=== PATIENT | male | born 1950 | race Caucasian/White ===

== ENCOUNTER 2019-12-11 09:21 | Day surgery (SDC) | payer OTHER ==
[~2019-12-11] VITALS: Ht 172.7 cm; Wt 78.8 kg
[~2019-12-11 09:21] MED LIST: MULTIVITAMINS1 EAC3 PO; Milk Thistle500 MG PO; TAMS.4ER PO
--- NOTE | 2019-12-11 12:04 | NUR ---
12/11/19 1204 Reena Caballero LATE ENTRY: REPORT WAS GIVEN TO ME BY [facility].RXS SHE STATES THAT DR BENOIT ORDERED AN EKG THE PT HAD PVC'S DURING THE PROCEDURE. EKG WAS DONE BY [facility] AND READ BY DR BENOIT. NO FURTHER ORDERS GIVEN AND PT WAS DISCHARGED.
== END 2019-12-11 12:04 | disposition home or self-care (01) ==
LOC: ORSCSDS 09:21
PROVIDERS: Internal Medicine Gastroenterology
PROC: 0DBN8ZX Excision of Sigmoid Colon, Via Natural or Artificial Opening Endoscopic, Diagnostic (ICD-10-PCS; principal; 2019-12-11 10:30)
PROC: 0DBL8ZX Excision of Transverse Colon, Via Natural or Artificial Opening Endoscopic, Diagnostic (ICD-10-PCS; principal; 2019-12-11 10:30)
PROC: 0D5H8ZZ Destruction of Cecum, Via Natural or Artificial Opening Endoscopic (ICD-10-PCS; principal; 2019-12-11 10:30)
PROC: 0DBK8ZX Excision of Ascending Colon, Via Natural or Artificial Opening Endoscopic, Diagnostic (ICD-10-PCS; principal; 2019-12-11 10:30)
PROC: 0DBP8ZX Excision of Rectum, Via Natural or Artificial Opening Endoscopic, Diagnostic (ICD-10-PCS; principal; 2019-12-11 10:30)
DX: Z12.11 Encounter for screening for malignant neoplasm of colon (principal); D12.2 Benign neoplasm of ascending colon; D12.3 Benign neoplasm of transverse colon; D12.4 Benign neoplasm of descending colon; K63.5 Polyp of colon; K62.1 Rectal polyp; K55.20 Angiodysplasia of colon without hemorrhage; K64.8 Other hemorrhoids; B19.20 Unspecified viral hepatitis C without hepatic coma; Z87.891 Personal history of nicotine dependence
CPT/HCPCS: 88305; 93005; 93010; J2704; J7120

== ENCOUNTER 2023-05-17 10:02 | Day surgery (SDC) | payer OTHER ==
[~2023-05-17] VITALS: Ht 172.7 cm; Wt 82.8 kg
[~2023-05-17 10:02] MED LIST changes: +EPCLUSA 400 MG1 EAC1; +PANT40
[2023-05-17 13:02] VITALS: BP 112/79
== END 2023-05-17 12:00 | disposition home or self-care (01) ==
LOC: ORSCSDS 10:02
PROVIDERS: Internal Medicine Gastroenterology
PROC: 0DB58ZX Excision of Esophagus, Via Natural or Artificial Opening Endoscopic, Diagnostic (ICD-10-PCS; principal; 2023-05-17 11:15)
PROC: 0DBP8ZX Excision of Rectum, Via Natural or Artificial Opening Endoscopic, Diagnostic (ICD-10-PCS; principal; 2023-05-17 11:15)
PROC: 0DBN8ZX Excision of Sigmoid Colon, Via Natural or Artificial Opening Endoscopic, Diagnostic (ICD-10-PCS; principal; 2023-05-17 11:15)
PROC: 0DB68ZX Excision of Stomach, Via Natural or Artificial Opening Endoscopic, Diagnostic (ICD-10-PCS; principal; 2023-05-17 11:15)
PROC: 0DBL8ZX Excision of Transverse Colon, Via Natural or Artificial Opening Endoscopic, Diagnostic (ICD-10-PCS; principal; 2023-05-17 11:15)
DX: K74.60 Unspecified cirrhosis of liver (principal); Z12.11 Encounter for screening for malignant neoplasm of colon; K22.70 Barrett's esophagus without dysplasia; Z86.010 Personal history of colon polyps; K31.7 Polyp of stomach and duodenum; D12.3 Benign neoplasm of transverse colon; D12.5 Benign neoplasm of sigmoid colon; K63.5 Polyp of colon; K62.1 Rectal polyp; K64.4 Residual hemorrhoidal skin tags; Z86.19 Personal history of other infectious and parasitic diseases; D69.6 Thrombocytopenia, unspecified; Z87.891 Personal history of nicotine dependence; Z79.899 Other long term (current) drug therapy
CPT/HCPCS: 88305; J2704; J7120